=== PATIENT | female | born 1990 | race Two or more races ===

== ENCOUNTER 2022-04-09 08:51 | Emergency (ER) | payer BC, OTHER ==
[~2022-04-09] VITALS: Ht 152.4 cm; Wt 77.1 kg
[2022-04-09] MEDS ORDERED: SODIUM CHLORIDE 0.9% 1,000 ML IVB ONE (09:30)
[2022-04-09 09:42] LABS: Basophils # (auto) 0 10 ^3/uL (0-0.2); Basophils % (auto) 0.4 % (0.0-2.0); Eosinophils # (auto) 0 10 ^3/uL (0-0.8); Hematocrit 45.4 % (36.0-46.0); Hemoglobin 15.2 g/dL (12.2-16.2); Lymphocytes # (auto) 1.2 10 ^3/uL (0.4-5.4); Lymphocytes % (auto) 15.2 % (10.0-50.0); Mean Corpuscular Hemoglobin 31.2 pg (28.0-32.0); Mean Corpuscular Hgb Conc. 33.5 g/dL (32.0-36.0); Mean Corpuscular Volume 93.2 fL (80.0-100.0); Monocytes # (auto) 0.5 10 ^3/uL (0-1.3); Monocytes % (auto) 6.4 % (0.0-12.0); Neutrophils # (auto) 5.9 10 ^3/uL (1.6-8.6); Red Blood Cells 4.87 10^6/uL (4.0-5.20); Red Cell Distribution Width 12.8 % (11.8-14.3); White Blood Cell 7.6 10^3/uL (4.4-10.8)
[2022-04-09 09:48] LABS: Urine Bacteria FEW /hpf (None Seen); Urine Blood Negative /uL (Negative); Urine Hyaline Cast FEW /lpf (0 - 2); Urine Mucus FEW (None Seen); Urine Specific Gravity 1.031 (1.001-1.035); Urine WBC 13 /hpf (0 - 5)
[2022-04-09 10:19] LABS: Albumin 4.1 g/dL (3.4-5.0); Magnesium 2.4 mg/dL (1.6-2.6); Potassium 3.8 mmol/L (3.5-5.1)
[2022-04-09 10:24] LABS: Bilirubin, Total 0.5 mg/dL (0.2-1.0); Total Protein 7.3 g/dL (6.4-8.2)
[2022-04-09] MEDS ORDERED: NITR-87 PO (11:38)
[2022-04-09 13:36] VITALS: BP 122/81
== END 2022-04-09 13:38 | disposition home or self-care (01) ==
LOC: ER 08:51
DX: R00.2 Palpitations (principal); Z98.890 Other specified postprocedural states; R10.2 Pelvic and perineal pain
CPT/HCPCS: 36415; 71046; 80053; 81001; 83735; 84484; 84702; 85025; 85379; 93005; 96360; 99285; J7030

== ENCOUNTER 2024-04-02 07:19 | Emergency (ER) | payer BC ==
[~2024-04-02] VITALS: Ht 160 cm; Wt 83.1 kg
[~2024-04-02 07:19] MED LIST: NITR-87 PO
--- NOTE | 2024-04-02 07:35 | ED.PDOC ---
CONTRACTS ANALYST HPI Comments 33 year old female BRONSON presents to the ED with chief complaint of vaginal spotting with abdominal pain. Patient reports that she has been experiencing some vaginal spotting with associated abdominal pain and chills for the past few days. Patient relays that she is currently 16 weeks and had visited [place] yesterday for the same complaint, but was advised to come back to the ED if she continued to experience her symptoms. Patient states she visits her OBGYN in [place] due to being a high risk patient and having history of hemorrhaging. Patient is with 2 . Patient denies any N/V/D, dizziness, fever, headache, dysuria, or vaginal discharge. Patient notes she is currently on 81mg of ASA. Chief Complaint: Abdominal Pain Time Seen by MD: 07:31 Reviewed Notes: Nurses Notes, Statistics Teacher Notes, Medications, Allergies Allergies: Coded Allergies: NO KNOWN ALLERGIES (Unverified , 04/09/22) Home Meds Active Scripts Nitrofurantoin Monohydrate Mac (Macrobid) 100 Mg Cap, 100 MG PO BID for 7 Days, #14 CAP Prov:DEEP GRIMALDO MD 04/09/22 Information Source: Patient, Emergency Med Personnel Mode of Arrival: EMS Timing: Days Prehospital treatment: None Severity: Moderate Vaginal Discharge: None Vaginal Lesions: None Bleeding Quality: Bright Red Vaginal Mass: None Onset Of Mass/Bleeding: Spontaneous Sexual Activity: Last Consensual Park: Unknown Control: None History of: Current Associated Signs and Symptoms: Vaginal Bleeding, Abdominal Pain, Chills Past Medical History PAST MEDICAL HISTORY: Denies 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 Pertinent ROADWAY DESIGNER History Family History Family History: Family hx of DM, Family hx of Cancer, Family hx of heart justo Social History Smoker: Non-Smoker Alcohol: Occasionally Drugs: Denies Drug Use Lives In: Home Constitutional: reports: chills; denies: diaphoresis, fatigue, fever, malaise, sweats, weakness, others EENTM: denies: blurred vision, double vision, ear bleeding, ear discharge, ear drainage, ear pain, ear ringing, eye pain, eye redness, hearing loss, mouth pain, mouth swelling, nasal discharge, nose bleeding, nose congestion, nose pain , photophobia, tearing, throat pain, throat swelling, voice changes, others Respiratory: denies: cough, hemoptysis, orthopnea, SOB at rest, shortness of breath, SOB with excertion, stridor, wheezing, others Cardiovascular: denies: chest pain, dizzy spells, diaphoresis, Dyspnea on exertion, edema, irregular heart beat, left arm pain, lightheadedness, palpitations, PND, syncope, others Gastrointestinal: reports: abdominal pain; denies: abdomen distended, blood streaked bowels, constipated, diarrhea, dysphagia, difficulty swallowing, hematemesis, melena, nausea, poor appetite, poor fluid intake, rectal bleeding, rectal pain, vomiting, others Genitourinary: reports: abnormal vagina bleeding, ; denies: burning, dyspareunia, dysuria, flank pain, frequency, hematuria, incontinence, pain, vagina discharge, urgency, others Neurological: denies: dizziness, fainting, headache, left sided numbness, left sided weakness, numbness, paresthesia, pre-existing deficit, right sided numbness, right sided weakness, seizure, speech problems, tingling, tremors, weakness, others Musculoskeletal: denies: back pain, gout, joint pain, joint swelling, muscle pain, muscle stiffness, neck pain, others Integumetry: denies: bruises, change in color, change in hair/nails, dryness, laceration, lesions, lumps, rash, wounds, others Allergic/Immunocompromised: denies: Difficulty Healing, Frequent Infections, Hives, Itching, others Hematologic/Lymphatic: denies: anemia, blood clots, easy bleeding, easy bruising, swollen glands, others Endocrine: denies: excessive hunger, excessive sweating, excessive thirst, excessive urination, flushing, intolerance to cold, intolerance to heat, unexplained weight gain, unexplained weight loss, others Psychiatric: denies: anxiety, bipolar disorder, depression, hopeless, panic disorder, schizophrenia, sleepless, suicidal, others All Other Systems: Reviewed and Negative Physical Exam General Appearance: Moderate Distress, Normal HEENT: Normal ENT Inspection, PERRL/EOMI Neck: Full Range of Motion, Non-Tender, Normal, Normal Inspection Respiratory: Chest Non-Tender, Lungs Clear, No Accessory Muscle Use, No Respiratory Distress, Normal Breath Sounds Cardiovascular: No Edema, No JVD, No Murmur, No Gallop, Normal Peripheral Pulses, Regular Rate/Rhythm Breast Exam: Deferred Gastrointestinal: No Organomegaly, Non Tender, No Pulsatile Mass, Normal Bowel Sounds, Soft Genitalia: Deferred Pelvic: Deferred Rectal: Deferred Extremities: No calf tenderness, Normal capillary refill, Normal inspection, Normal range of motion, Non-tender, No pedal edema Musculoskeletal : Apperance: Normal Neurologic: Alert, documentation writer II-XII nml as Tested, No Motor Deficits, Normal Affect, Normal Mood, No Sensory Deficits Cerebellar Function: Normal Reflexes: Normal Skin: Dry, Normal Color, Warm Peripheral Pulses: 3+ Radial (R), 3+ Radial (L) Lymphatic: No Adenopathy Was a procedure done? Was a procedure done?: No Differential Diagnosis (ROADWAY DESIGNER) Vaginal Bleeding: - Complete, - Incomplete, - Inevitable, - Missed, - Threatened X-Ray, Labs, Meds, VS Vital Signs Date Time Temp Pulse Resp B/P (MAP) Pulse Ox O2 Delivery O2 Flow Rate FiO2 04/02/24 08:14 Room Air* 0 21 04/02/24 08:13 99.6 141 16 132/75 (94) 99 99.6 04/02/24 07:24 100.7 130 20 107/56 (73) 99 Lab Test 04/02/24 08:09 04/02/24 07:25 Range/Units White Blood Count 14.3 H 4.4-10.8 10^3/uL Red Blood Count 4.23 4.0-5.20 10^6/uL Hemoglobin 13.6 12.2-16.2 g/dL Hematocrit 39.4 36.0-46.0 % Mean Corpuscular Volume 93.2 80.0-100.0 fL Mean Corpuscular Hemoglobin 32.2 H 28.0-32.0 pg Mean Corpuscular Hemoglobin Concent 34.5 32.0-36.0 g/dL Red Cell Distribution Width 13.6 11.8-14.3 % Platelet Count 202 140-450 10^3/uL Mean Platelet Volume 8.0 6.9-10.8 fL Neutrophils (%) (Auto) 94.5 H 37.0-80.0 % Lymphocytes (%) (Auto) 3.2 L 10.0-50.0 % Monocytes (%) (Auto) 2.1 0.0-12.0 % Eosinophils (%) (Auto) 0.0 0.0-7.0 % Basophils (%) (Auto) 0.2 0.0-2.0 % Neutrophils # (Auto) 13.5 H 1.6-8.6 10 ^3/uL Lymphocytes # (Auto) 0.5 0.4-5.4 10 ^3/uL Monocytes # (Auto) 0.3 0-1.3 10 ^3/uL Eosinophils # (Auto) 0 0-0.8 10 ^3/uL Basophils # (Auto) 0 0-0.2 10 ^3/uL Nucleated Red Blood Cells 0.1 % Beta HCG, Quantitative Pending Urine Color Yellow Yellow Urine Clarity Turbid H Clear Urine pH 6.0 5.0-9.0 Urine Specific [place] 1.025 1.001-1.035 Urine Protein Trace H Negative Urine Ketones 3+ H Negative Urine Blood 2+ H Negative /uL Urine Nitrite Negative Negative Urine Bilirubin Negative Negative Urine Urobilinogen Normal Negative mg/dL Urine Leukocyte Esterase 3+ Negative /uL Urine RBC 5 0 - 4 /hpf Urine Microscopic WBC 89 H 0-5 /HPF Urine Squamous Epithelial Cells Few <5 /hpf Urine Bacteria Few H None Seen /hpf Urine Mucus Few None Seen Urine Glucose Normal Normal mg/dL Current Medications Medications (Trade) Dose Ordered Sig/Heather Route Start Time Stop Time Status Last Admin Sodium Chloride 1,000 ml @ 1,000 mls/hr Q1H ONCE IV 04/02/24 08:15 04/02/24 09:14 04/02/24 08:25 Patient alert. He is anxious. Saturation pristine on room air. Answering all questions. No obvious bleeding. She is high risk. Was seen at [facility] yesterday for similar symptom. Explained to the patient. Continue monitoring. No shortness a breath. No leg swelling. OB US: FINDINGS: IUP single live fetus at 16 weeks 3 days based on composite averages of the BPD, head circumference, abdominal circumference and femur length. Estimated weight 163 grams. heart rate is not detected. No amniotic fluid seen. Cervix appears closed and measures up to 3.9 cm in length. Variable presentation Posterior placenta. IMPRESSION: 1. No heart rate detected, suspected demise. 2. No amniotic fluid visualized. Critical findings Critical Result: Suspected demise. Findings reported to AMBER RUSSO by the linter operator at 04/02/2024 08:00 AM PST, and acknowledged receipt and understanding of the findings. Time of 1ST Reevaluation: 08:31 Reevaluation 1ST: Improved Patient Education/Counseling: Diagnosis, Treatment Family Education/Counseling: No Family Present Departure 1 Departure Time of Disposition: 07:44 Impression: Primary Impression: Vaginal bleeding during Disposition: 02 SHORT TERM HOSPITAL Admit to: Med Surg Condition: Guarded Critical Care Note Critical Care Time?: No Stability Stability form required: No Heart Score Heart Score: Heart Score Response (Comments) Value History N/A 0 EKG N/A 0 Age N/A 0 Risk Factors N/A 0 Troponin N/A 0 Total 0 I personally scribed for AMBER EMANUEL MD ([email or web address]) on 04/02/24 at 07:35. Electronically submitted by Meng Rob ([email or web address]). I personally scribed for AMBER EMANUEL MD ([email or web address]) on 04/02/24 at 08:37. Electronically submitted by Meng Rob ([email or web address]). AMBER EAMNUEL MD Apr 02, 2024 07:35
[2024-04-02 08:04] LABS: Urine Bacteria FEW /hpf (None Seen); Urine Blood 2+ /uL (Negative); Urine Clarity Turbid (Clear); Urine Color Yellow (Yellow); Urine Mucus FEW (None Seen); Urine Protein, UAD TRACE (Negative); Urine Specific Gravity 1.025 (1.001-1.035); Urine Squamous Epithelial Cell FEW /hpf (<5); Urine Urobilinogen Normal (Negative); Urine WBC 89 /HPF (0-5)
[2024-04-02 08:17] LABS: Basophils # (auto) 0 10 ^3/uL (0-0.2); Basophils % (auto) 0.2 % (0.0-2.0); Eosinophils # (auto) 0 10 ^3/uL (0-0.8); Hematocrit 39.4 % (36.0-46.0); Hemoglobin 13.6 g/dL (12.2-16.2); Lymphocytes # (auto) 0.5 10 ^3/uL (0.4-5.4); Lymphocytes % (auto) 3.2 % (10.0-50.0); Mean Corpuscular Hemoglobin 32.2 pg (28.0-32.0); Mean Corpuscular Hgb Conc. 34.5 g/dL (32.0-36.0); Mean Corpuscular Volume 93.2 fL (80.0-100.0); Monocytes # (auto) 0.3 10 ^3/uL (0-1.3); Monocytes % (auto) 2.1 % (0.0-12.0); Neutrophils # (auto) 13.5 10 ^3/uL (1.6-8.6); Neutrophils % (auto) 94.5 % (37.0-80.0); Nucleated Red Blood Cells % 0.1 %; Platelet Count (auto) 202 10^3/uL (140-450); Red Blood Cells 4.23 10^6/uL (4.0-5.20); Red Cell Distribution Width 13.6 % (11.8-14.3); White Blood Cell 14.3 10^3/uL (4.4-10.8)
--- NOTE | 2024-04-02 08:24 | DVH ---
LIMITED OB ULTRASOUND > 14 WKS: HISTORY: bleeding, pain, leaking fluid TECHNIQUE: Multiple real-time grayscale images of the gravid uterus with duplex Doppler color flow an d M-mode spectral analysis. COMPARISON: None. FINDINGS: IUP single live fetus at 16 weeks 3 days based on composite averages of the BPD, head circumference, abdominal circumference and femur length. Estimated weight 163 grams. heart rate is not detected. No amniotic fluid seen. Cervix appears closed and measures up to 3.9 cm in length. Variable presentation Posterior placenta. IMPRESSION: 1. No heart rate detected, suspected demise. 2. No amniotic fluid visualized. Critical findings Critical Result: Suspected demise. Findings reported to AMBER RUSSO by the rug dry room attendant at 04/02/2024 08:00 AM PST, and acknow ledged receipt and understanding of the findings. ..
[2024-04-02] MEDS: SODIUM CHLORIDE 0.9% 1,000 ML IV ONE (08:25)
[2024-04-02 10:46] VITALS: BP 115/75; PULSE 128; RESP 22; TEMP 98.3; O2SAT 97
== END 2024-04-02 11:08 | disposition short-term general hospital (02) ==
LOC: ER 07:19 → EDBD 07:19 → ER 11:08
DX: O20.9 Hemorrhage in early pregnancy, unspecified (principal); Z3A.16 16 weeks gestation of pregnancy; Z83.3 Family history of diabetes mellitus
CPT/HCPCS: 36415; 76805; 81001; 84702; 85025; 96360; 99285; J7030